=== PATIENT | female | born 1985 | race African-American/Black ===

== ENCOUNTER 2016-10-11 00:29 | Emergency (ER) | payer OTHER ==
--- NOTE | ~2016-10-11 | CR21 ---
[facility] A Service of [facility] RADIOLOGY TEXT RESULTS PATIENT: ANGÉLICA PRAKASH LOCATION: [facility] : 87 UNIT #: [id number] AGE: [address]: HARINI LUNA SEX: F ORDER DR: [id number] [facility] [address] [place], [place] [address] [id number] E MR#: [id number] Acc #: [id number] NAME: ANGÉLICA PRAKASH : 1985 SEX: F STUDY DATE/TIME: 10/11/2016 02:30 UNIT: [facility] ROOM: STUDY DESCRIPTION: CR Ankle Min 3 Views Rt Attending Physician: Harini Luna Aprn Ordering Physician: Harini Luna Aprn Primary Care Physician: [facility], 1928–1983, MEDICAL IMAGING REPORT This report is preliminary unless electronic signature is present EXAM Right ankle, 10/11 at 02:30 INDICATIONS Ankle pain with ambulation after tripping yesterday. FINDINGS AP, lateral, and oblique projections of the ankle show satisfactory integrity of the joint mortise with a smooth articular surface. There is no identifiable fracture, dislocation, or radiopaque foreign body. IMPRESSION Normal ankle. Dictated by... Anurag Parrish Jr., M.D. THIS IS AN ELECTRONICALLY VERIFIED REPORT Anurag Parrish Jr., M.D. at 10/11/2016 9:23 PM LOVE/hanh TD: 10/11/2016 19:59 JOB #: [id number] MEDICAL IMAGING REPORT Page 1 of 1 COPY
--- NOTE | ~2016-10-11 | CR127 ---
[facility] A Service of [facility] & [facility] RADIOLOGY TEXT RESULTS PATIENT: ANGÉLICA PRAKASH LOCATION: [facility] : 87 UNIT #: [id number] AGE: [address]: HARINI LUNA SEX: F ORDER DR: [id number] [facility] [address] [place], [place] [address] [id number] E MR#: [id number] Acc #: [id number] NAME: ANGÉLICA PRAKASH : 1985 SEX: F STUDY DATE/TIME: 10/11/2016 02:32 UNIT: [facility] ROOM: STUDY DESCRIPTION: CR Foot Complete Min 3 View Rt Attending Physician: Harini Luna Aprn Ordering Physician: Harini Luna Aprn Primary Care Physician: [facility], MEDICAL IMAGING REPORT This report is preliminary unless electronic signature is present EXAM Right foot, 10/11 at 02:32 INDICATIONS Pain with walking after tripping yesterday. FINDINGS The tarsal, metatarsal, and phalangeal elements are all anatomically normal in position and alignment. There are no articular defects. No fractures or radiopaque foreign bodies in the soft tissues are apparent. IMPRESSION Normal foot. Dictated by... Anurag Parrish Jr., M.D. THIS IS AN ELECTRONICALLY VERIFIED REPORT Anurag Parrish Jr., M.D. at 10/11/2016 9:23 PM LOVE/hanh TD: 10/11/2016 19:46 JOB #: [id number] MEDICAL IMAGING REPORT Page 1 of 1 COPY
[~2016-10-11 00:29] MED LIST: FLAGYL PO; LEVAQUIN PO
== END 2016-10-11 03:43 | disposition home or self-care (01) ==
LOC: CED 00:29
DX: S93.401A Sprain of unspecified ligament of right ankle, initial encounter (principal); F17.210 Nicotine dependence, cigarettes, uncomplicated; J45.909 Unspecified asthma, uncomplicated; W19.XXXA Unspecified fall, initial encounter; Y92.9 Unspecified place or not applicable
CPT/HCPCS: 29540; 73610; 73630; 99283